=== PATIENT | male | born 1965 | race Caucasian/White ===

== ENCOUNTER 2021-05-18 10:53 | Emergency (ER) | payer OTHER ==
[~2021-05-18] VITALS: Ht 188 cm; Wt 94.5 kg
[2021-05-18] MEDS ORDERED: CEFD300C PO (11:41)
--- NOTE | 2021-05-18 11:41 | PHYS DOC ---
General Adult EDM: Chief Complaint: FOOT INJURY PAIN HPI: HPI: 55-year-old male presents with mass at the base of the fifth toe of the right. Patient states that this came up yesterday or this morning. He has noticed for 2 days that his fourth and fifth digit have been a little swollen and erythematous. It is thought it was irritation from his shoes. He denies fever or chills. He has never had a lesion in this area before. He has no other complaints this time. Review of Systems: Review of Systems: Constitutional: Denies fever or chills Eyes: Denies change in visual acuity HENT: Denies nasal congestion or sore throat Respiratory: Denies cough or shortness of breath Cardiovascular: Denies chest pain or edema GI: Denies abdominal pain, nausea, vomiting, bloody stools or diarrhea : Denies dysuria Musculoskeletal: Denies back pain or joint pain Integument: Mass right foot Neurologic: Denies headache, focal weakness or sensory changes Endocrine: Denies polyuria or polydipsia Lymphatic: Denies swollen glands Psychiatric: Denies depression or anxiety Physical Exam: PE: Constitutional: Well developed, well nourished, no acute distress, non-toxic appearance. [] HENT: Normocephalic, atraumatic, bilateral external ears normal, oropharynx moist, no oral exudates, nose normal. [] Eyes: PERRLA, EOMI, conjunctiva normal, no discharge. [] Neck: Normal range of motion, no tenderness, supple, no stridor. [] Cardiovascular: Heart rate regular rhythm, no murmur [] Lungs & Thorax: Bilateral breath sounds clear to auscultation [] Abdomen: Bowel sounds normal, soft, no tenderness, no masses, no pulsatile masses. [] Skin: 6 mm mass at the base of the fourth and fifth digit webspace on the right foot; clear fluid collection, fluctuant. Surrounding erythema and warmth consistent with cellulitis. [] Back: No tenderness, no CVA tenderness. [] Extremities: No tenderness, no cyanosis, no clubbing, ROM intact, no edema. [] Neurologic: Alert and oriented X 3, normal motor function, normal sensory function, no focal deficits noted. [] Psychologic: Affect normal, judgement normal, mood normal. [] EKG: EKG: [] Radiology/Procedures: Radiology/Procedures: [] Heart Score: C/O Chest Pain: N/A Risk Factors: Risk Factors: DM, Current or recent (<one month) smoker, HTN, HLP, family history of CAD, obesity. Risk Scores: Score 0 - 3: 2.5% MACE over next 6 weeks - Discharge Home Score 4 - 6: 20.3% MACE over next 6 weeks - Admit for Clinical Observation Score 7 - 10: 72.7% MACE over next 6 weeks - Early Invasive Strategies Course & Med Decision Making: Course & Med Decision Making Pertinent Labs and Imaging studies reviewed. (See chart for details) The patient's mass is like a blister. It is obvious that it is thin-walled with clear fluid. I did place a hole in the mass with a 20-gauge needle and it drained clear fluid with no purulent material. I will put the patient on cefdinir for 7 days. He is stable for discharge at this time. Dragon Disclaimer: Dragon Disclaimer: This electronic medical record was generated, in whole or in part, using a voice recognition dictation system. Departure Departure: Impression: Primary Impression: Cellulitis of fifth toe, right Additional Impression: Cellulitis of fourth toe, right Disposition: HOME / SELF CARE / HOMELESS Condition: STABLE Referrals: NICOLE TOBIAS MD (PCP) Patient Instructions: Cellulitis, [id number] Script[facility] Cefdinir (CEFDINIR) 300 Mg Capsule 2 CAP PO DAILY for cellulitis for 7 Days, #14 CAP Prov: DEEPAK FERNANDEZ DO 05/18/21 DEEPAK FERNANDEZ DO May 18, 2021 11:41
[2021-05-18 11:42] VITALS: BP 163/83
== END 2021-05-18 11:50 | disposition home or self-care (01) ==
LOC: ER 10:53
DX: L03.031 Cellulitis of right toe (principal)
CPT/HCPCS: 10060; 99283